=== PATIENT | male | born 1970 | race Caucasian/White ===

== ENCOUNTER 2017-04-06 19:51 | Emergency (ER) | payer BC, OTHER ==
--- NOTE | 2017-04-06 20:10 | EDM.PDOC ---
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 He jumped to the ground and his L foot slid in front of him and he fell. There was some initial pain in the ankle, but no observed swelling. He has continued employment, but is aware of some residual pain and appearance of swelling. He has not worn a splint or brace, nor has taken medication. He comes to the [facility] ED this evening for assessment. - Related Data Allergies Allergy/AdvReac Type Severity Reaction Status Date / Time No Known Allergies Allergy Verified 04/06/17 19:59 Home Meds: Home Meds NK [No Known Home Meds] 04/06/17 [History] Past Medical History - Past Surgical History HEENT Surgical History: Reports: Tonsillectomy Musculoskeletal Surgical History: Reports: Other (See Below) Other Musculoskeletal Surgeries/Procedures:: tendon and bilateral ankle surgery. Social & Family History - Family History Family Medical History: Noncontributory - Tobacco Use Smoking Status *Q: Current Every Day Smoker Years of Tobacco use: 15 Packs/Tins Daily: 1 - Caffeine Use Caffeine Use: Reports: Coffee, Soda - Recreational Drug Use Recreational Drug Use: No Review of Systems - Review of Systems Review Of Systems: ROS reveals no pertinent complaints other than HPI. ED EXAM, GENERAL - Physical Exam Exam: See Below Exam Limited By: No Limitations General Appearance: Alert, WD/WN, No Apparent Distress Head: Normocephalic Neck: Normal Inspection Respiratory/Chest: Lungs Clear Cardiovascular: Regular Rate, Rhythm Back Exam: Normal Inspection Extremities: Joint Swelling (L ankle: small effusion, no laxity to maneuver; neg drawer sign) Neurological: Alert, Oriented, CN II-XII Intact, No Motor/Sensory Deficits Psychiatric: Normal Affect, Normal Mood Skin Exam: Warm, Dry, Intact, Normal Color Lymphatic: No Adenopathy Course - Vital Signs Text/Narrative:: I reviewed x rays of L ankle: no deformity. Prieto was fitted with a AirCast Splint. Last Recorded V/S: Last Vital Signs Temp 36.7 C 04/06/17 20:00 Pulse 88 04/06/17 20:00 Resp 17 04/06/17 20:00 BP 160/77 H 04/06/17 20:00 Pulse Ox 100 04/06/17 20:00 - Orders/Labs/Meds Orders: Active Orders 24 hr Category Date Time Status Ankle Min 3V Lt [CR] Stat Exams 04/06/17 20:06 Ordered Departure - Departure Time of Disposition: 20:47 Disposition: Home, Self-Care 01 Condition: Fair Clinical Impression: Sprain of left ankle Qualifiers: Encounter type: initial encounter Involved ligament of ankle: unspecified ligament Qualified Code(s): S93.402A - Sprain of unspecified ligament of left ankle, initial encounter - Discharge Information Referrals: PCP,None [Primary Care Provider] - Forms: ED Department Discharge - Problem List & Annotations (1) Sprain of left ankle SNOMED Code(s): 47866089 Code(s): S93.402A - SPRAIN OF UNSPECIFIED LIGAMENT OF LEFT ANKLE, INIT ENCNTR Status: Acute Current Visit: Yes Annotation/Comment:: AirCast Splint, NSAIDs for comfort, and gentle ROM. Qualifiers: Encounter type: initial encounter Involved ligament of ankle: unspecified ligament Qualified Code(s): S93.402A - Sprain of unspecified ligament of left ankle, initial encounter - Problem List Review Problem List Initiated/Reviewed/Updated: Yes - My Orders Last 24 Hours: My Active Orders 04/06/17 20:06 Ankle Min 3V Lt [CR] Stat - Assessment/Plan Last 24 Hours: My Active Orders 04/06/17 20:06 Ankle Min 3V Lt [CR] Stat Plan: Follow up with PCP.
--- NOTE | 2017-04-07 11:11 | CR ---
INDICATION: Injury from fall at work on 04/04/2017. LEFT ANKLE: Three views of the left ankle were obtained 04/06/2017 and revealed a moderate sized plantar calcaneal spur. The ankle mortise appeared intact without a fracture, dislocation, or other significant bone or joint abnormality. VENKAT
== END 2017-04-06 20:54 | disposition home or self-care (01) ==
LOC: FB.ED 19:51
DX: S93.402A Sprain of unspecified ligament of left ankle, initial encounter (principal); F17.210 Nicotine dependence, cigarettes, uncomplicated; W17.89XA Other fall from one level to another, initial encounter; Y92.69 Other specified industrial and construction area as the place of occurrence of the external cause; Y99.0 Civilian activity done for income or pay
CPT/HCPCS: 29515; 73610-LT; 99283

== ENCOUNTER 2017-12-13 08:19 | Emergency (ER) | payer OTHER ==
[2017-12-13] MEDS ORDERED: Dexamethasone 4 MG/ML SDV IVPUSH ONE (09:24)
--- NOTE | 2017-12-13 09:34 | EDM.PDOC ---
ED HPI GENERAL MEDICAL PROBLEM - General Chief Complaint: Upper Extremity Injury/Pain Stated Complaint: RT SHOULDER NUMBNESS Time Seen by Provider: 12/13/17 09:20 Source of Information: Reports: Patient History Limitations: Reports: No Limitations - History of Present Illness INITIAL COMMENTS - FREE TEXT/NARRATIVE: Developed right shoulder pain yesterday radiating down right arm associated with numbness and weakness. Shoulder pain is worse with movement. Symptoms did not improve with Ibuprofen. Has h/o rheumatoid arthritis, had been on methotrexate and prednisone but d/c'd 1 year ago because didn't tolerate the side effects. Has also had right lower back pain radiating to right leg since yesterday and intermittent headaches x 1 week (currently no headache). Denies injury. Onset Date: 12/12/17 Duration: Day(s): (2) Severity: Moderate Worsens with: Reports: Movement Right Shoulder Pain Score (Numeric/FACES): 6 - Related Data Allergies Allergy/AdvReac Type Severity Reaction Status Date / Time No Known Allergies Allergy Verified 12/13/17 08:43 Home Meds: Home Meds Acetaminophen/HYDROcodone [[place] 325-5 MG] 1 - 2 tab PO Q6H PRN #20 tab [Rx] Albuterol [Ventolin HFA] 1 inh INH Q4H PRN 12/13/17 [History] Methocarbamol [Robaxin] 1,500 mg PO Q8H PRN #40 tab 12/13/17 [Rx] predniSONE [Prednisone] 60 mg PO DAILY #15 tablet 12/13/17 [Rx] Past Medical History Cardiovascular History: Denies: CAD, DC Respiratory History: Reports: Asthma Immunologic History: Reports: Other (See Below) (Rheumatoid arthritis) - Past Surgical History HEENT Surgical History: Reports: Tonsillectomy Musculoskeletal Surgical History: Reports: Other (See Below) Other Musculoskeletal Surgeries/Procedures:: tendon and bilateral ankle surgery. Social & Family History - Family History Family Medical History: Noncontributory - Tobacco Use Smoking Status *Q: Current Some Day Smoker Tobacco Use Within Last Twelve Months: Cigarettes - Caffeine Use Caffeine Use: Reports: Coffee, Soda - Alcohol Use Alcohol Use History: No - Recreational Drug Use Recreational Drug Use: No Review of Systems - Review of Systems Review Of Systems: ROS reveals no pertinent complaints other than HPI. ED EXAM, GENERAL - Physical Exam Exam: See Below Exam Limited By: No Limitations General Appearance: Alert, WD/WN, No Apparent Distress Eye Exam: Bilateral Eye: EOMI, PERRL Ears: Normal External Exam Nose: Normal Inspection Throat/Mouth: No Airway Compromise Head: Atraumatic, Normocephalic Neck: Normal Inspection, Supple, Non-Tender Respiratory/Chest: No Respiratory Distress, Lungs Clear, Normal Breath Sounds Cardiovascular: Regular Rate, Rhythm, No Murmur Peripheral Pulses: 2+: Radial (R) Extremities: Normal Capillary Refill, Limited Range of Motion (right shoulder due to pain), Other (right posterior shoulder tenderness) Neurological: Alert, CN II-XII Intact, Normal Cognition, Normal Gait, Other ( weak right grasp, decreased sensation light touch to right arm, decreased sensation right lateral thigh, DTRs=0 bilateral upper and lower extremities) Psychiatric: Normal Affect, Normal Mood Skin Exam: Warm, Dry, Intact EKG INTERPRETATION EKG Date: 12/13/17 Time: 09:34 Rhythm: NSR Rate (Beats/Min): 61 [place]: Normal P-Wave: Present QRS: Normal ST-T: Normal QT: Normal Course - Vital Signs Last Recorded V/S: Last Vital Signs Temp 36.8 C 12/13/17 08:19 Pulse 71 12/13/17 08:19 Resp 18 12/13/17 08:19 BP 133/82 12/13/17 08:19 Pulse Ox 98 12/13/17 08:19 - Orders/Labs/Meds Orders: Active Orders 24 hr Category Date Time Status C-Spine [Cervical Spine wo Cont] [CT] Stat Exams 12/13/17 09:47 Ordered Cervical Spine Comp wo Cont [MR] Stat Exams 12/13/17 09:23 Stop Req Head wo Cont [CT] Stat Exams 12/13/17 09:21 Ordered Lumbar Spine Comp wo Cont [MR] Stat Exams 12/13/17 09:21 Stop Req Lumbar Spine wo Cont [CT] Stat Exams 12/13/17 09:47 Taken Shoulder Comp Rt [CR] Stat Exams 12/13/17 09:21 Taken Sodium Chloride 0.9% [Saline Flush] Med 12/13/17 09:24 Active 10 ml FLUSH ASDIRECTED PRN Saline Lock Insert [OM.PC] Routine Oth 12/13/17 09:24 Ordered EKG 12 Lead [EK] Stat Ther 12/13/17 09:21 Ordered Medication Orders Sodium Chloride (Saline Flush) 10 ml FLUSH ASDIRECTED PRN PRN Reason: Keep Vein Open Last Admin: 12/13/17 09:59 Dose: 10 ml Admin: 12/13/17 09:57 Dose: 10 ml Labs: Laboratory Tests 12/13/17 12/13/17 12/13/17 Range/Units 09:40 09:40 09:40 WBC 9.1 (4.5-12.0) X10-3/uL RBC 4.77 (4.30-5.75) x10(6)uL Hgb 16.4 H (11.5-15.5) g/dL Hct 46.7 (30.0-51.3) % MCV 97.9 H (80-96) fL MCH 34.4 H (27.7-33.6) pg MCHC 35.1 (32.2-35.4) g/dL RDW 11.6 (11.5-15.5) % Plt Count 290 (125-369) X10(3)uL MPV 7.7 (7.4-10.4) fL Neut % (Auto) 65.8 (46-82) % Lymph % (Auto) 26.5 (13-37) % [place] % (Auto) 4.6 (4-12) % Eos % (Auto) 2 (1.0-5.0) % Baso % (Auto) 1 (0-2) % Neut # (Auto) 6.0 (1.6-8.3) # Lymph # (Auto) 2.4 (0.6-5.0) # [place] # (Auto) 0.4 (0.0-1.3) # Eos # (Auto) 0.2 (0.0-0.8) # Baso # (Auto) 0.1 (0.0-0.2) # Sodium 137 (135-145) mmol/L Potassium 4.0 (3.5-5.3) mmol/L Chloride 103 (100-110) mmol/L Carbon Dioxide 29 (21-32) mmol/L BUN 14 (7-18) mg/dL Creatinine 1.0 (0.70-1.30) mg/dL Est Cr Clr Drug Dosing 93.28 mL/min Estimated GFR (MDRD) > 60 (>60) BUN/Creatinine Ratio 14.0 (9-20) Glucose 109 (80-116) mg/dL Calcium 9.0 (8.6-10.2) mg/dL Total Bilirubin 0.5 (0.1-1.3) mg/dL AST 16 (5-25) IU/L ALT 34 (12-36) U/L Alkaline Phosphatase 57 (56-112) IU/L Troponin I < 0.017 L (<0.017-0.056) ng/mL Total Protein 7.7 (6.0-8.0) g/dL Albumin 3.8 (3.5-5.2) g/dL Globulin 3.9 g/dL Albumin/Globulin Ratio 1.0 Meds: Medications Generic Name Dose Route Start Last Admin Trade Name Freq PRN Reason Stop Dose Admin Sodium Chloride 10 ml 12/13/17 09:24 12/13/17 09:59 Saline Flush FLUSH 10 ml ASDIRECTED PRN Administration Keep Vein Open Discontinued Medications Generic Name Dose Route Start Last Admin Trade Name Freq PRN Reason Stop Dose Admin Dexamethasone 10 mg 12/13/17 09:24 12/13/17 09:52 Dexamethasone IVPUSH 12/13/17 09:25 10 mg ONETIME ONE Administration - Radiology Interpretation Free Text/Narrative:: CT Head: NAD (per Dr. Burgess). CT C-spine: NAD (per Dr. Burgess). CT L-spine: NAD (per Dr. Burgess). Right shoulder XR: NAD. - Re-Assessments/Exams Free Text/Narrative Re-Assessment/Exam: 12/13/17 10:49 Some improvement of RUE pain and strength after Decadron 10mg IV. Departure - Departure Time of Disposition: 10:49 Disposition: Home, Self-Care 01 Condition: Good Clinical Impression: Cervical radiculopathy, Sciatica, right side Right shoulder pain Qualifiers: Chronicity: acute Qualified Code(s): M25.511 - Pain in right shoulder - Discharge Information *PRESCRIPTION DRUG MONITORING PROGRAM REVIEWED*: Yes *COPY OF PRESCRIPTION DRUG MONITORING REPORT IN PATIENT FAWN: Not Applicable Prescriptions: Acetaminophen/HYDROcodone [[place] 325-5 MG] 1 - 2 tab PO Q6H PRN #20 tab PRN Reason: Pain Methocarbamol [Robaxin] 1,500 mg PO Q8H PRN #40 tab PRN Reason: Muscle Spasm predniSONE [Prednisone] 60 mg PO DAILY #15 tablet Instructions: Shoulder Pain, Cervical Radiculopathy, Sciatica, [id number] Referrals: PCP,None [Primary Care Provider] - Forms: ED Department Discharge Additional Instructions: Fill prescriptions for Prednisone, [place] and Robaxin. Rest. Establish with a primary physician in 3-4 days. Outpatient MRIs of cervical and lumbar spine. - My Orders Last 24 Hours: My Active Orders 12/13/17 09:21 Head wo Cont [CT] Stat Lumbar Spine Comp wo Cont [MR] Stat Shoulder Comp Rt [CR] Stat EKG 12 Lead [EK] Stat 12/13/17 09:23 Cervical Spine Comp wo Cont [MR] Stat 12/13/17 09:24 Sodium Chloride 0.9% [Saline Flush] 10 ml FLUSH ASDIRECTED PRN Saline Lock Insert [OM.PC] Routine 12/13/17 09:47 C-Spine [Cervical Spine wo Cont] [CT] Stat Lumbar Spine wo Cont [CT] Stat - Assessment/Plan Last 24 Hours: My Active Orders 12/13/17 09:21 Head wo Cont [CT] Stat Lumbar Spine Comp wo Cont [MR] Stat Shoulder Comp Rt [CR] Stat EKG 12 Lead [EK] Stat 12/13/17 09:23 Cervical Spine Comp wo Cont [MR] Stat 12/13/17 09:24 Sodium Chloride 0.9% [Saline Flush] 10 ml FLUSH ASDIRECTED PRN Saline Lock Insert [OM.PC] Routine 12/13/17 09:47 C-Spine [Cervical Spine wo Cont] [CT] Stat Lumbar Spine wo Cont [CT] Stat
[2017-12-13] MEDS: Sodium Chloride 0.9% 10 ML Syringe FLUSH PRN ×2 (09:57→09:59)
--- NOTE | 2017-12-13 11:31 | CR ---
INDICATION: Shoulder pain. RIGHT SHOULDER X-RAYS, FOUR VIEWS: FINDINGS: There is minimal degenerative change where the rotator cuff tendons insert on the greater tuberosity. There is minimal degenerative change at the AC joint. Otherwise, no significant abnormalities are shown. If the patient continues to have symptoms or if there is suspicion for internal derangement, I would do an MRI scan of shoulder for further evaluation. [facility]
--- NOTE | 2017-12-13 11:35 | CT ---
INDICATION: Headaches. Facial numbness and tingling. CT HEAD WITHOUT CONTRAST: TECHNIQUE: 2.5 mm slices without contrast. Soft tissue and bone window images. FINDINGS: There was an earlier study from 08/01/2017. No significant changes. No bleed or mass or mass effect. Ventricles and sulci look normal. No parenchymal density abnormality. There is mild sinusitis with mild mucosal thickening in the ethmoid sinuses. No calvarial lesions. IMPRESSION: Minimal paranasal sinus inflammatory disease in the ethmoid sinuses. Otherwise, no significant abnormalities. [facility]
--- NOTE | 2017-12-13 11:43 | CT ---
INDICATION: Back pain. Right leg pain. CT LUMBAR SPINE WITHOUT CONTRAST: TECHNIQUE: Axial images through the lumbar spine with sagittal and coronal reformatted images. FINDINGS: No relevant comparison imaging. The patient appears to be of larger body habitus. There appear to be 5 lumbar type vertebral bodies. On the reformative images, there is slight retrolisthesis of L5 on S1. Otherwise, the alignment is appropriate. No compression fracture. No worrisome lytic or blastic bone lesion. Axial images are reviewed. They show the following: T12-L1: No apparent neural foraminal or central canal compromise. L1-2: No apparent neural foraminal or central canal compromise. L2-3: No apparent neural foraminal or central canal compromise. L3-4: No apparent neural foraminal or central canal compromise. Mild degenerative change in the facet joints. L4-5: Minimal diffuse disk bulge. Mild degenerative change in the facet joints. No apparent neural foraminal or central canal compromise. L5-S1: Mild degenerative change in the facet joints. Mild diffuse disk bulge. No definite neural foraminal or central canal compromise or nerve root impingement. IMPRESSION: Mild generalized degenerative changes, as outlined above. By this study, no definite neural foraminal or central canal compromise or nerve root impingement. If the patient continues to have symptoms that are suggestive of radiculopathy, I would do an MRI of lumbar spine for further evaluation. [facility]
--- NOTE | 2017-12-13 11:57 | CT ---
INDICATION: Neck pain. Right arm pain. CT CERVICAL SPINE WITHOUT CONTRAST: TECHNIQUE: Axial images through the cervical spine. Sagittal and coronal reformatted images. FINDINGS: No comparison imaging. On the reformatted images, there is some straightening of the cervical spine, which may be related to some underlying spasm. Otherwise, I feel the cervical vertebral bodies are in reasonable alignment. There is some mild disk space narrowing with some degenerative end plate change and spurring that is identified, especially at the C4-5 and C5-6 levels. No bony fracture. No worrisome lytic or blastic bone lesion. Axial images are reviewed. They show the following: C2-3: Mild degenerative change in the facet joints, right greater than left. No apparent neural foraminal or central canal compromise. C3-4: Minimal degenerative change related to the uncovertebral joints and facet joints on the left side. No significant neural foraminal or central canal compromise. C4-5: Minimal broad-based posterior osteophytic ridging and disk bulge. No significant neural foraminal or central canal compromise. C5-6: Minimal posterior osteophytic ridging and disk bulge. No significant neural foraminal or central canal compromise. C6-7: No significant neural foraminal or central canal compromise. C7-T1: Mild degenerative change in the facet joints. No significant neural foraminal or central canal compromise. IMPRESSION: Mild degenerative changes are present. By this exam, no appreciable neural foraminal or central canal compromise. If there is still a persistent suspicion for underlying radiculopathy, recommend MRI of cervical spine for further evaluation. [facility]
== END 2017-12-13 11:23 | disposition home or self-care (01) ==
LOC: FB.ED 08:19
DX: M54.12 Radiculopathy, cervical region (principal); M54.41 Lumbago with sciatica, right side; F17.210 Nicotine dependence, cigarettes, uncomplicated; J45.909 Unspecified asthma, uncomplicated; I25.10 Atherosclerotic heart disease of native coronary artery without angina pectoris; I25.2 Old myocardial infarction; Z79.899 Other long term (current) drug therapy
CPT/HCPCS: 36415; 70450; 72125; 72131; 73030-RT; 80053; 84484; 85025; 93005; 96374; 99284; J1100; J7050

== ENCOUNTER 2018-10-12 21:23 | Emergency (ER) | payer BC ==
--- NOTE | 2018-10-12 22:09 | EDM.PDOC ---
ED HPI GENERAL MEDICAL PROBLEM - General Chief Complaint: Chest Pain Stated Complaint: POSSIBLE HEART ATTACK Time Seen by Provider: 10/12/18 21:50 Source of Information: Reports: Patient History Limitations: Reports: No Limitations - History of Present Illness INITIAL COMMENTS - FREE TEXT/NARRATIVE: 48-year-old male who reports at 3 AM today (10/12/2018) he was awakened by a sharp and stabbing pain in his lower central chest that radiated through to his back. It was a 9/10 at this point. It continued until approximately 6 AM and then it seemed to resolve. He still had some tenderness in his abdomen with palpation associated with this. He had no vomiting. He was quite diaphoretic with this. He found that sitting up seemed to make his symptoms somewhat better and lying down seems to make them worse. He reports that he felt fairly normal through the day and then at approximately 8 PM tonight he had recurrence of the pain that at a lesser level that before. He reports the pain as a 6-7/10 and is in the same place going through to his back. He also reports that he ate pizza tonight prior to this occurring. No difficulty breathing. He did have diaphoresis associated with this again. No cough. No fevers or chills. No other associated signs or symptoms. No other modifying factors. Onset: Today (3 AM and again at 8 PM) Duration: Intermittent Location: Reports: Chest, Abdomen, Back Quality: Reports: Sharp, Stabbing Severity: Moderate (to severe) Improves with: Reports: Other (Sitting up) Worsens with: Reports: Other (Palpation. 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) - Related Data Allergies Allergy/AdvReac Type Severity Reaction Status Date / Time No Known Allergies Allergy Verified 10/12/18 23:47 Home Meds: Home Meds Acetaminophen/HYDROcodone [[place] 325-5 MG] 1 - 2 tab PO Q6H PRN #20 tab [Rx] Albuterol [Ventolin HFA] 1 inh INH Q4H PRN 12/13/17 [History] Methocarbamol [Robaxin] 1,500 mg PO Q8H PRN #40 tab 12/13/17 [Rx] predniSONE [Prednisone] 60 mg PO DAILY #15 tablet 12/13/17 [Rx] Omeprazole 40 mg PO QAM #30 cap.sr 10/12/18 [Rx] Past Medical History Respiratory History: Reports: Asthma Musculoskeletal History: Reports: RA (But this is untreated present.) - Past Surgical History HEENT Surgical History: Reports: Tonsillectomy Musculoskeletal Surgical History: Reports: Other (See Below) (Bilateral ankle reconstruction with repair of tendons and some hardware placement) Other Musculoskeletal Surgeries/Procedures:: Tendon repair of right forearm. Social & Family History - Family History Cardiac: Reports: None - Tobacco Use Smoking Status *Q: Current Every Day Smoker - Caffeine Use Caffeine Use: Reports: Coffee, Soda - Alcohol Use Alcohol Use History: No - Living Situation & Occupation Living situation: Reports: (Here with his ) Occupation: Employed ED ROS GENERAL - Review of Systems Review Of Systems: See Below Constitutional: Reports: Diaphoresis HEENT: Reports: No Symptoms Respiratory: Reports: No Symptoms Cardiovascular: Reports: Chest Pain GI/Abdominal: Reports: Abdominal Pain : Reports: No Symptoms Musculoskeletal: Reports: Back Pain (Pain radiates from lower chest and upper abdominal area to his back) Skin: Reports: Diaphoresis (With these episodes) Neurological: Reports: No Symptoms Hematologic/Lymphatic: Reports: No Symptoms Immunologic: Reports: No Symptoms ED EXAM, GENERAL - Physical Exam Exam: See Below Exam Limited By: No Limitations General Appearance: Alert, Mild Distress, Obese Eye Exam: Bilateral Eye: EOMI, Normal Inspection, PERRL Ears: Normal External Exam Ear Exam: Bilateral Ear: Auricle Normal Nose: Normal Inspection, Normal Mucosa, No Blood Throat/Mouth: Normal Inspection, Normal Oropharynx, Normal Voice, No Airway Compromise Head: Atraumatic, Normocephalic Neck: Normal Inspection Respiratory/Chest: No Respiratory Distress, Lungs Clear, Normal Breath Sounds, No Accessory Muscle Use, Chest Non-Tender Cardiovascular: Normal Peripheral Pulses, Regular Rate, Rhythm, No JVD Peripheral Pulses: 2+: Radial (L), Radial (R), Dorsalis Pedis (L), Dorsalis Pedis (R) GI/Abdominal: Normal Bowel Sounds, Soft, Tender (And right upper Quadrant and epigastrium), Other (Protuberant). No: Rigid, Rebound Back Exam: Normal Inspection. No: CVA Tenderness (R), CVA Tenderness (L) Extremities: Normal Inspection, Normal Range of Motion, Non-Tender, No Pedal Edema, Normal Capillary Refill Neurological: Alert, Oriented, CN II-XII Intact, Normal Cognition, No Motor/ Sensory Deficits Skin Exam: Warm, Dry, Intact, Normal Color, No Rash EKG INTERPRETATION EKG Date: 10/12/18 Time: 21:26 Rhythm: NSR Rate (Beats/Min): 80 Anna: Normal P-Wave: Present QRS: Normal ST-T: Normal QT: Normal Comparison: No Change (From EKG performed on 12/13/2017. This is a normal EKG.) Course - Vital Signs Last Recorded V/S: Last Vital Signs Temp 36.8 C 10/12/18 23:12 Pulse 74 10/12/18 23:12 Resp 19 10/12/18 23:12 BP 121/69 10/12/18 23:12 Pulse Ox 98 10/12/18 23:12 - Orders/Labs/Meds Orders: Active Orders 24 hr Category Date Time Status EKG Documentation Completion [RC] ASDIRECTED Care 10/12/18 22:13 Active Chest 2V [CR] Stat Exams 10/12/18 22:11 Taken Sodium Chloride 0.9% [Saline Flush] Med 10/12/18 22:13 Active 10 ml FLUSH ASDIRECTED PRN Peripheral IV Insertion Adult [OM.PC] Routine Oth 10/12/18 22:13 Ordered EKG 12 Lead [EK] Routine Ther 10/12/18 22:11 Ordered Medication Orders Sodium Chloride (Saline Flush) 10 ml FLUSH ASDIRECTED PRN PRN Reason: Keep Vein Open Labs: Laboratory Tests 10/12/18 10/12/18 10/12/18 Range/Units 21:35 21:35 21:35 WBC 8.5 (4.5-12.0) X10-3/uL RBC 4.42 (4.30-5.75) x10(6)uL Hgb 15.1 (13.5-17.8) g/dL Hct 43.2 (30.0-51.3) % MCV 97.7 H (80-96) fL MCH 34.1 H (27.7-33.6) pg MCHC 34.9 (32.2-35.4) g/dL RDW 11.7 (11.5-15.5) % Plt Count 275 (125-369) X10(3)uL MPV 8.3 (7.4-10.4) fL Neut % (Auto) 59.0 (46-82) % Lymph % (Auto) 31.8 (13-37) % [place] % (Auto) 5.0 (4-12) % Eos % (Auto) 3 (1.0-5.0) % Baso % (Auto) 1 (0-2) % Neut # (Auto) 5.0 (1.6-8.3) # Lymph # (Auto) 2.7 (0.6-5.0) # [place] # (Auto) 0.4 (0.0-1.3) # Eos # (Auto) 0.3 (0.0-0.8) # Baso # (Auto) 0.1 (0.0-0.2) # Sodium 143 (135-145) mmol/L Potassium 3.2 L (3.5-5.3) mmol/L Chloride 108 D (100-110) mmol/L Carbon Dioxide 26 (21-32) mmol/L BUN 19 H (7-18) mg/dL Creatinine 1.0 (0.70-1.30) mg/dL Est Cr Clr Drug Dosing TNP Estimated GFR (MDRD) > 60 (>60) BUN/Creatinine Ratio 19.0 (9-20) Glucose 113 (80-116) mg/dL Calcium 8.6 (8.6-10.2) mg/dL Total Bilirubin 0.3 (0.1-1.3) mg/dL AST 13 D (5-25) IU/L ALT 28 D (12-36) U/L Alkaline Phosphatase 65 (56-112) IU/L Troponin I < 0.017 L (<0.017-0.056) ng/mL C-Reactive Protein < 0.2 L (0.5-0.9) mg/dL Total Protein 6.9 (6.0-8.0) g/dL Albumin 3.5 (3.5-5.2) g/dL Globulin 3.4 g/dL Albumin/Globulin Ratio 1.0 Amylase 39 (25-115) U/L Meds: Medications Generic Name Dose Route Start Last Admin Trade Name Freq PRN Reason Stop Dose Admin Sodium Chloride 10 ml 10/12/18 22:13 Saline Flush FLUSH ASDIRECTED PRN Keep Vein Open Discontinued Medications Generic Name Dose Route Start Last Admin Trade Name Brayan PRN Reason Stop Dose Admin Sodium Chloride 1,000 mls @ 999 mls/hr 10/12/18 22:13 10/12/18 22:35 Normal Saline IV 10/12/18 23:13 999 mls/hr .BOLUS ONE Administration Metoclopramide HCl 10 mg 10/12/18 22:13 10/12/18 22:34 Reglan IVPUSH 10/12/18 22:14 10 mg ONETIME ONE Administration Morphine Sulfate 4 mg 10/12/18 22:13 10/12/18 23:06 Morphine IVPUSH 10/12/18 22:14 Not Given ONETIME ONE Ondansetron HCl 4 mg 10/12/18 22:13 10/12/18 22:34 Zofran IVPUSH 10/12/18 22:14 4 mg ONETIME ONE Administration Pantoprazole Sodium 40 mg 10/13/18 23:28 Protonix PO 10/13/18 23:29 ONETIME ONE Pantoprazole Sodium 40 mg 10/13/18 23:32 Protonix PO 10/13/18 23:33 ONETIME ONE Pantoprazole Sodium 40 mg 10/12/18 23:36 10/12/18 23:39 Protonix PO 10/12/18 23:37 40 mg ONETIME ONE Administration - Radiology Interpretation Free Text/Narrative:: Chest x-ray PA and lateral shows no acute pathology. - Re-Assessments/Exams Free Text/Narrative Re-Assessment/Exam: 10/12/18 23:20: Patient feels much improved after Reglan and Zofran (he refused the morphine). He still has some pain. He rates pain as a 1/10. The pain is worse with palpation still but improved and he really wishes to go home. His blood tests were reassuringly normal. His troponin was negative. His chest x- ray was normal. His EKG was normal. With a normal EKG and the prolonged episodes of chest pain/abdominal pain, I feel the normal troponin has ruled out [place]. I suspect his symptoms are related to either gallbladder disease or gastroesophageal reflux disease. I am placing the patient on Prilosec 40 mg daily and I have referred him to [facility] where he can get further outpatient workup to delineate his problem. Departure - Departure Time of Disposition: 23:40 Disposition: Home, Self-Care 01 Condition: Good (Improved) Clinical Impression: Abdominal pain Qualifiers: Abdominal location: right upper quadrant Qualified Code(s): R10.11 - Right upper quadrant pain Chest pain Qualifiers: Chest pain type: unspecified Qualified Code(s): R07.9 - Chest pain, unspecified - Discharge Information Prescriptions: Omeprazole 40 mg PO QAM #30 cap.sr Instructions: Abdominal Pain, Adult, [id number], Nonspecific Chest Pain, Easy -to-Read Referrals: Leigha Mariscal NP [Nurse Practitioner] - Forms: ED Department Discharge Additional Instructions: Your EKG was reassuringly normal. Your blood tests were normal. Your chest x- ray was normal. This does not appear to be anything related to your heart. I suspect that your pain is due to either gallbladder disease or to acid reflux. I am placing you on Prilosec for treatment of possible acid reflux. You should avoid fatty foods and stick with a bland diet. You should drink plenty of fluids. Back to the emergency department for increase in pain, vomiting, trouble breathing or any other concerning sign or symptom. I have sent a referral to Leigha Mariscal NP. They should call you to arrange an appointment for follow-up with her. You will need further outpatient workup to include a gallbladder ultrasound and possibly other things. - My Orders Last 24 Hours: My Active Orders 10/12/18 22:11 Chest 2V [CR] Stat EKG 12 Lead [EK] Routine 10/12/18 22:13 EKG Documentation Completion [RC] ASDIRECTED Sodium Chloride 0.9% [Saline Flush] 10 ml FLUSH ASDIRECTED PRN Peripheral IV Insertion Adult [OM.PC] Routine - Assessment/Plan Last 24 Hours: My Active Orders 10/12/18 22:11 Chest 2V [CR] Stat EKG 12 Lead [EK] Routine 10/12/18 22:13 EKG Documentation Completion [RC] ASDIRECTED Sodium Chloride 0.9% [Saline Flush] 10 ml FLUSH ASDIRECTED PRN Peripheral IV Insertion Adult [OM.PC] Routine
[2018-10-12] MEDS ORDERED: Sodium Chloride 0.9% 1,000 ML IV ONE (22:13)
[2018-10-12] MEDS ORDERED: Metoclopramide 10 MG/2 ML SDV IVPUSH ONE (22:13)
[2018-10-12] MEDS ORDERED: Ondansetron 4 MG/2 ML SDV IVPUSH ONE (22:13)
[2018-10-12] MEDS ORDERED: Sodium Chloride 0.9% 10 ML Syringe FLUSH PRN (22:13)
[2018-10-12] MEDS: Morphine 4 MG/ML Syringe IVPUSH ONE ×2 (22:34→23:06)
[2018-10-12] MEDS ORDERED: Pantoprazole 40 MG Tab.CR PO ONE (23:36)
--- NOTE | 2018-10-13 11:20 | CR ---
INDICATION: Chest and abdominal pain. CHEST: PA and lateral views of the chest were obtained 10/12/18 - no comparisons. The heart and mediastinum were unremarkable. A mild dextroconvex scoliosis of the upper middle thoracic spine is noted. Diaphragm leaves are somewhat flattened with mild hyperaeration and prominent AP diameter, raising question of obstructive airway disease - possible COPD - correlate clinically. Overlying EKG leads are noted. A definite active infiltrate or effusion was not identified. IMPRESSION: 1. No acute process. 2. Possible COPD - correlate clinically. 3. Mild scoliosis. MTDD
[2018-10-13] MEDS ORDERED: Pantoprazole 40 MG Tab.CR PO ONE ×2 (23:28→23:32)
== END 2018-10-12 23:45 | disposition home or self-care (01) ==
LOC: FB.ED 21:23
DX: R07.9 Chest pain, unspecified (principal); R10.11 Right upper quadrant pain; J45.909 Unspecified asthma, uncomplicated; F17.200 Nicotine dependence, unspecified, uncomplicated; Z79.899 Other long term (current) drug therapy; Z98.890 Other specified postprocedural states
CPT/HCPCS: 36415; 71046; 80053; 82150; 84484; 85025; 86140; 93005; 96361; 96374; 96375; 99285; A9270; J2405; J2765; J7030; J2270

== ENCOUNTER 2019-07-03 08:47 | Emergency (ER) | payer BC, OTHER ==
[2019-07-03] MEDS ORDERED: Sodium Chloride 0.9% 10 ML Syringe FLUSH PRN (09:26)
[2019-07-03] MEDS ORDERED: Budesonide 0.5 MG/2 ML Neb Susp NEB ONE (09:41)
[2019-07-03] MEDS ORDERED: Albuterol/Ipratropium 3.0-0.5 MG/3 ML Neb Soln NEB ONE (09:41)
[2019-07-03] MEDS ORDERED: methylPREDNISolone Sodium Succinate 125 MG/2 ML SDV IVPUSH ONE (09:44)
[2019-07-03] MEDS ORDERED: Meclizine 25 MG Tab PO ONE (09:48)
--- NOTE | 2019-07-03 09:50 | EDM.PDOC ---
ED HPI GENERAL MEDICAL PROBLEM - General Chief Complaint: Respiratory Problem Stated Complaint: SOB,DIZZY,COUGH Time Seen by Provider: 07/03/19 09:15 Source of Information: Reports: Patient History Limitations: Reports: No Limitations - History of Present Illness INITIAL COMMENTS - FREE TEXT/NARRATIVE: sent in from clinic States he has had worsening asthma symptoms in the last 2-3 days has been getting more sob despite using albuterol Neb and and symbicort ( ran out of this about 3 weeks ago) had severe URI one month ago and since then has not felt completely better as cough has persisted till he developed sob this am was at work when he felt dizzy , lightheaded like he was going to fall balance seemed to be off states he did slip and fall down stairs on tuesday and hit his left side but pain in the lower back got worse pain with radiation and numbness and tingling in the toes on the right Onset: Gradual Onset Date: 06/30/19 Duration: Hour(s): (3) Location: Reports: Back (right side with pain radiaiting to the right leg) Quality: Reports: Ache, Dull Improves with: Reports: Cold Therapy, Heat Therapy Worsens with: Reports: Movement Context: Reports: Trauma (fell down stairs) Associated Symptoms: Reports: Cough, Shortness of Breath. Denies: Fever/Chills Lower Back Pain Score (Numeric/FACES): 7 - Related Data Allergies Allergy/AdvReac Type Severity Reaction Status Date / Time No Known Allergies Allergy Verified 07/03/19 09:27 Home Meds: Home Meds Albuterol [Ventolin HFA] 2 inh INH Q6H PRN 12/13/17 [History] Cyclobenzaprine [Flexeril] 10 mg PO BID PRN #30 tab 07/03/19 [Rx] Doxycycline [Vibramycin] 100 mg PO BID #14 cap 07/03/19 [Rx] Lidocaine 5% [Lidoderm 5%] 1 patch TOP DAILY #10 patch 07/03/19 [Rx] Nabumetone [Relafen] 750 mg PO BID #60 tab 07/03/19 [Rx] predniSONE 40 mg PO WITHBREAKFAST #5 tab 07/03/19 [Rx] Past Medical History Respiratory History: Reports: Asthma Gastrointestinal History: Reports: GERD Musculoskeletal History: Reports: RA (But this is untreated present.) Immunologic History: Reports: Other (See Below) (Rheumatoid arthritis) - Past Surgical History HEENT Surgical History: Reports: Tonsillectomy Musculoskeletal Surgical History: Reports: Other (See Below) (Bilateral ankle reconstruction with repair of tendons and some hardware placement) Other Musculoskeletal Surgeries/Procedures:: Tendon repair of right forearm. Social & Family History - Family History Family Medical History: Noncontributory Cardiac: Reports: None - Caffeine Use Caffeine Use: Reports: Coffee, Soda - Living Situation & Occupation Living situation: Reports: (Here with his ) Occupation: Employed ED ROS GENERAL - Review of Systems Review Of Systems: Comprehensive ROS is negative, except as noted in HPI. Constitutional: Reports: Malaise. Denies: Fever, Chills HEENT: Reports: No Symptoms Respiratory: Reports: Shortness of Breath, Cough Cardiovascular: Reports: No Symptoms Endocrine: Reports: No Symptoms GI/Abdominal: Reports: No Symptoms Musculoskeletal: Reports: Back Pain, Other (numbness and tingling down the legs) Neurological: Reports: Dizziness, Paresthesia (right sided), Difficulty Walking , Gait Disturbance Psychiatric: Reports: No Symptoms Hematologic/Lymphatic: Reports: No Symptoms ED EXAM, GENERAL - Physical Exam Exam: See Below Exam Limited By: No Limitations General Appearance: Alert, WD/WN, No Apparent Distress Eye Exam: Bilateral Eye: EOMI Ears: Normal External Exam Nose: Normal Inspection Throat/Mouth: Normal Inspection Head: Atraumatic, Normocephalic Neck: Supple, Non-Tender Respiratory/Chest: Decreased Breath Sounds, Wheezing (scattered, improved wtih duoneb) Cardiovascular: Regular Rate, Rhythm GI/Abdominal: Soft, Non-Tender Back Exam: Decreased Range of Motion, Muscle Spasm, Paraspinal Tenderness. No: Vertebral Tenderness Extremities: Limited Range of Motion (on the right due to positive SLR) Neurological: Alert, Oriented, CN II-XII Intact Psychiatric: Normal Affect Course - Vital Signs Last Recorded V/S: Last Vital Signs Temp 36.7 C 07/03/19 08:50 Pulse 77 07/03/19 08:50 Resp 14 07/03/19 08:50 BP 161/91 H 07/03/19 08:50 Pulse Ox 98 07/03/19 08:50 - Orders/Labs/Meds Orders: Active Orders 24 hr Category Date Time Status EKG Documentation Completion [RC] ASDIRECTED Care 07/03/19 09:27 Active RT Aerosol Therapy [RC] ASDIRECTED Care 07/03/19 09:41 Active Lumbar Spine 2 or 3V [CR] Stat Exams 07/03/19 10:51 Ordered Sodium Chloride 0.9% [Saline Flush] Med 07/03/19 09:26 Active 10 ml FLUSH ASDIRECTED PRN Peripheral IV Insertion Adult [OM.PC] Routine Oth 07/03/19 09:26 Ordered EKG 12 Lead [EK] Routine Ther 07/03/19 09:26 Ordered Medication Orders Sodium Chloride (Saline Flush) 10 ml FLUSH ASDIRECTED PRN PRN Reason: Keep Vein Open Last Admin: 07/03/19 10:18 Dose: 10 ml Labs: Laboratory Tests 07/03/19 07/03/19 07/03/19 Range/Units 09:40 09:40 09:40 WBC 7.9 (4.5-12.0) X10-3/uL RBC 4.49 (4.30-5.75) x10(6)uL Hgb 15.3 (13.5-17.8) g/dL Hct 43.6 (30.0-51.3) % MCV 97.0 H (80-96) fL MCH 34.1 H (27.7-33.6) pg MCHC 35.1 (32.2-35.4) g/dL RDW 11.5 (11.5-15.5) % Plt Count 258 (125-369) X10(3)uL MPV 7.4 (7.4-10.4) fL Neut % (Auto) 57.0 (46-82) % Lymph % (Auto) 32.4 (13-37) % [place] % (Auto) 5.3 (4-12) % Eos % (Auto) 3 (1.0-5.0) % Baso % (Auto) 3 H (0-2) % Neut # (Auto) 4.5 (1.6-8.3) # Lymph # (Auto) 2.6 (0.6-5.0) # [place] # (Auto) 0.4 (0.0-1.3) # Eos # (Auto) 0.2 (0.0-0.8) # Baso # (Auto) 0.2 (0.0-0.2) # D-Dimer, Quantitative (0.0-0.59) mg/LFEU Sodium 140 (135-145) mmol/L Potassium 4.2 D (3.5-5.3) mmol/L Chloride 105 (100-110) mmol/L Carbon Dioxide 25 (21-32) mmol/L BUN 12 (7-18) mg/dL Creatinine 1.0 (0.70-1.30) mg/dL Est Cr Clr Drug Dosing 95.31 mL/min Estimated GFR (MDRD) > 60 (>60) BUN/Creatinine Ratio 12.0 (9-20) Glucose 118 H (80-116) mg/dL Calcium 8.4 L (8.6-10.2) mg/dL Troponin I 7.0 (4.0-60.3) pg/mL 07/03/19 Range/Units 09:40 WBC (4.5-12.0) X10-3/uL RBC (4.30-5.75) x10(6)uL Hgb (13.5-17.8) g/dL Hct (30.0-51.3) % MCV (80-96) fL MCH (27.7-33.6) pg MCHC (32.2-35.4) g/dL RDW (11.5-15.5) % Plt Count (125-369) X10(3)uL MPV (7.4-10.4) fL Neut % (Auto) (46-82) % Lymph % (Auto) (13-37) % [place] % (Auto) (4-12) % Eos % (Auto) (1.0-5.0) % Baso % (Auto) (0-2) % Neut # (Auto) (1.6-8.3) # Lymph # (Auto) (0.6-5.0) # [place] # (Auto) (0.0-1.3) # Eos # (Auto) (0.0-0.8) # Baso # (Auto) (0.0-0.2) # D-Dimer, Quantitative 0.20 (0.0-0.59) mg/LFEU Sodium (135-145) mmol/L Potassium (3.5-5.3) mmol/L Chloride (100-110) mmol/L Carbon Dioxide (21-32) mmol/L BUN (7-18) mg/dL Creatinine (0.70-1.30) mg/dL Est Cr Clr Drug Dosing mL/min Estimated GFR (MDRD) (>60) BUN/Creatinine Ratio (9-20) Glucose (80-116) mg/dL Calcium (8.6-10.2) mg/dL Troponin I (4.0-60.3) pg/mL Meds: Medications Generic Name Dose Route Start Last Admin Trade Name Freq PRN Reason Stop Dose Admin Sodium Chloride 10 ml 07/03/19 09:26 07/03/19 10:18 Saline Flush FLUSH 10 ml ASDIRECTED PRN Administration Keep Vein Open Discontinued Medications Generic Name Dose Route Start Last Admin Trade Name Freq PRN Reason Stop Dose Admin Albuterol/Ipratropium 3 ml 07/03/19 09:41 07/03/19 09:55 Duoneb 3.0-0.5 Mg/3 Ml NEB 07/03/19 09:42 3 ml ONETIME ONE Administration Budesonide 0.5 mg 07/03/19 09:41 07/03/19 09:55 Pulmicort NEB 07/03/19 09:42 0.5 mg ONETIME ONE Administration Meclizine HCl 25 mg 07/03/19 09:48 07/03/19 10:18 Antivert PO 07/03/19 09:49 25 mg ONETIME ONE Administration Methylprednisolone Sodium Succinate 125 mg 07/03/19 09:44 07/03/19 10:09 Solu-Medrol IVPUSH 07/03/19 09:45 125 mg ONETIME ONE Administration - Re-Assessments/Exams Free Text/Narrative Re-Assessment/Exam: 07/03/19 11:25 pt given duoneb and solumedrol and pulmicort and breathing improved given toradol for low back pain labs are negative : negative D-dimer Departure - Departure Time of Disposition: 11:30 Disposition: DC/Tfer to Hospice - Home 50 Clinical Impression: Acute bronchitis with asthma with acute exacerbation, Right-sided low back pain with right-sided sciatica, Lumbar paraspinal muscle spasm, Bronchitis - Discharge Information *PRESCRIPTION DRUG MONITORING PROGRAM REVIEWED*: Not Applicable *COPY OF PRESCRIPTION DRUG MONITORING REPORT IN PATIENT FAWN: Not Applicable Prescriptions: Lidocaine 5% [Lidoderm 5%] 1 patch TOP DAILY #10 patch Nabumetone [Relafen] 750 mg PO BID #60 tab predniSONE 40 mg PO WITHBREAKFAST #5 tab Instructions: Back Injury Prevention, [id number], Sciatica, Pzil-or-Krek Referrals: Prieto Ortiz MD [Primary Care Provider] - Forms: ED Department Discharge Additional Instructions: 1) continue with inhalers as prescribed if symptoms get worse seen you doctor of adjustment of medications 2) Warm compress to lower back 3 times daily 3) OK to see chiropractor or physical therapist for back pain Sepsis Event Note - Evaluation Sepsis Screening Result: No Definite Risk - Focused Exam Vital Signs: Vital Signs Temp Pulse Resp BP Pulse Ox 07/03/19 08:50 36.7 C 77 14 161/91 H 98 Date Exam was Performed: 07/03/19 Time Exam was Performed: 11:22 - My Orders Last 24 Hours: My Active Orders 07/03/19 09:26 Sodium Chloride 0.9% [Saline Flush] 10 ml FLUSH ASDIRECTED PRN Peripheral IV Insertion Adult [OM.PC] Routine EKG 12 Lead [EK] Routine 07/03/19 09:27 EKG Documentation Completion [RC] ASDIRECTED 07/03/19 09:41 RT Aerosol Therapy [RC] ASDIRECTED 07/03/19 10:51 Lumbar Spine 2 or 3V [CR] Stat - Assessment/Plan Last 24 Hours: My Active Orders 07/03/19 09:26 Sodium Chloride 0.9% [Saline Flush] 10 ml FLUSH ASDIRECTED PRN Peripheral IV Insertion Adult [OM.PC] Routine EKG 12 Lead [EK] Routine 07/03/19 09:27 EKG Documentation Completion [RC] ASDIRECTED 07/03/19 09:41 RT Aerosol Therapy [RC] ASDIRECTED 07/03/19 10:51 Lumbar Spine 2 or 3V [CR] Stat
--- NOTE | 2019-07-03 09:52 | CR ---
INDICATION: Shortness of breath. CHEST, ONE VIEW: AP upright view of the chest was obtained 07/03/19 and compared with 10/12/18. The lungs appear to be slightly hyperaerated. This could be on the basis of obstructive airway disease and should be correlated clinically. A definite active infiltrate or effusion was not identified. The heart and mediastinum and bony thorax were unremarkable except for a very minimal dextroconvex scoliosis of the thoracic spine present previously. Overlying EKG leads and a snap are noted. IMPRESSION: 1. No acute process. 2. Question possibility of COPD - correlate clinically. 3. Mild scoliosis. MTDD
--- NOTE | 2019-07-03 11:48 | CR ---
INDICATION: Lumbar back pain with radiation to the right leg after fall on Tuesday on the ice. LUMBAR SPINE: Three views of the lumbosacral spine were obtained 07/03/[address] lumbosacral spine of 12/13/2017. Bone density appeared to be normal. The pedicles appear to be intact. Sacroiliac joints appear to be intact with some mild degenerative changes, slightly more prominent on the right than left. Vertebral body and disc heights are again well maintained with relatively minimal hypertrophic changes anteriorly off vertebral body L4 and to an even lesser extent L3. No acute fracture or dislocation was suggested. IMPRESSION: No acute fracture or dislocation - essentially normal for age lumbosacral spine with minimal straightening. If symptoms persist - if occult fracture site is suspected clinically, nuclear bone imaging, CT or MRI may be helpful for further evaluation, as felt to be clinically necessary. VALENTINOD
== END 2019-07-03 11:55 | disposition home or self-care (01) ==
LOC: FB.ED 08:47
DX: J20.9 Acute bronchitis, unspecified (principal); J45.901 Unspecified asthma with (acute) exacerbation; M54.41 Lumbago with sciatica, right side
CPT/HCPCS: 36415; 71045; 72100; 80048; 84484; 85025; 85379; 93005; 94640; 96374; 99285-25; A9270-GY; J2930; J7620-GY

== ENCOUNTER 2019-11-08 06:57 | Emergency (ER) | payer BC, OTHER ==
--- NOTE | 2019-11-08 07:44 | EDM.PDOC ---
ED HPI GENERAL MEDICAL PROBLEM - General Chief Complaint: Wound Recheck Stated Complaint: RIGHT PINKY OPENED BACK UP Time Seen by Provider: 11/08/19 07:28 Source of Information: Reports: Patient, Old Records History Limitations: Reports: No Limitations - History of Present Illness INITIAL COMMENTS - FREE TEXT/NARRATIVE: Prieto comes into [facility] ED for inspection of R 5th digit wound that was injured 10 days ago. This fingertip injury required suturing, and SR earlier this week. He is concerned that the wound is discolored and not healed. When the dressing was removed, there was some appearance of discharge along the exposed margins. There was no odor, warmth or marvin tenderness. He is taking Keflex po. - Related Data Allergies Allergy/AdvReac Type Severity Reaction Status Date / Time No Known Allergies Allergy Verified 11/08/19 07:10 Home Meds: Home Meds Albuterol [Ventolin HFA] 2 inh INH Q6H PRN 12/13/17 [History] cephALEXin [Cephalexin] 500 mg TID 11/08/19 [History] Past Medical History Respiratory History: Reports: Asthma Gastrointestinal History: Reports: GERD Musculoskeletal History: Reports: RA Neurological History: Reports: Concussion Psychiatric History: Reports: Depression Endocrine/Metabolic History: Reports: Obesity/BMI 30+ Immunologic History: Reports: Other (See Below) (Rheumatoid arthritis) - Past Surgical History HEENT Surgical History: Reports: Adenoidectomy, Tonsillectomy GI Surgical History: Reports: None Musculoskeletal Surgical History: Reports: Other (See Below) Other Musculoskeletal Surgeries/Procedures:: Tendon repair of L forearm, bilat ankle surgery Social & Family History - Family History Family Medical History: Noncontributory Cardiac: Reports: None - Tobacco Use Smoking Status *Q: Current Every Day Smoker Years of Tobacco use: 20 Packs/Tins Daily: 0.3 - Caffeine Use Caffeine Use: Reports: Coffee, Soda - Recreational Drug Use Recreational Drug Use: No - Living Situation & Occupation Living situation: Reports: (Here with his ) Occupation: Employed ED ROS GENERAL - Review of Systems Review Of Systems: Comprehensive ROS is negative, except as noted in HPI. ED EXAM, SKIN/RASH Exam: See Below Exam Limited By: No Limitations General Appearance: Alert, WD/WN, No Apparent Distress Head: Normocephalic Neck: Normal Inspection, Supple, Non-Tender Respiratory/Chest: Lungs Clear Cardiovascular: Regular Rate, Rhythm Back Exam: Normal Inspection Extremities: Normal Range of Motion, Non-Tender, Other (inspection of R 5th digit: distal wound dehisence observed along margins, with granulation tissue an d some fibrinous exudate. There is no warmth, erythema, tenderness, or sloughing observed. ROM is unimpaired. Remainder of exam is unremarkable.) Neurological: Alert, Oriented, CN II-XII Intact, Normal Gait, No Motor/Sensory Deficits Psychiatric: Normal Affect, Normal Mood Skin: Dry Course - Vital Signs Text/Narrative:: Following an explanation of wound appearance, the nurse cleansed the wound with Hibiclens and redressed. He will continue daily wound care and finish out antibx. Last Recorded V/S: Last Vital Signs Temp 36.9 C 11/08/19 07:05 Pulse 72 11/08/19 07:05 Resp 18 11/08/19 07:05 BP 134/84 11/08/19 07:05 Pulse Ox 99 11/08/19 07:05 Departure - Departure Time of Disposition: 07:47 Disposition: Home, Self-Care 01 Condition: Fair Clinical Impression: Dehiscence of laceration wound of finger Qualifiers: Encounter type: subsequent encounter Qualified Code(s): T81.30XD - Disruption of wound, unspecified, subsequent encounter - Discharge Information *PRESCRIPTION DRUG MONITORING PROGRAM REVIEWED*: Not Applicable *COPY OF PRESCRIPTION DRUG MONITORING REPORT IN PATIENT FAWN: Not Applicable Referrals: PCP,None [Primary Care Provider] - Sepsis Event Note (ED) - Evaluation Sepsis Screening Result: No Definite Risk - Focused Exam Vital Signs: Vital Signs Temp Pulse Resp BP Pulse Ox 11/08/19 07:05 36.9 C 72 18 134/84 99 - Problem List & Annotations (1) Dehiscence of laceration wound of finger SNOMED Code(s): 993239220, 831665852 Code(s): T81.30XA - DISRUPTION OF WOUND, UNSPECIFIED, INITIAL ENCOUNTER Status: Acute Annotation/Comment:: I suggested continued wound cares, finish out antibx, and follow up with PCP. Qualifiers: Encounter type: subsequent encounter Qualified Code(s): T81.30XD - Disruption of wound, unspecified, subsequent encounter - Problem List Review Problem List Initiated/Reviewed/Updated: Yes - Assessment/Plan Plan: Follow up with PCP.
== END 2019-11-08 07:54 | disposition home or self-care (01) ==
LOC: FB.ED 06:57
DX: T81.33XA Disruption of traumatic injury wound repair, initial encounter (principal); F17.210 Nicotine dependence, cigarettes, uncomplicated; J45.909 Unspecified asthma, uncomplicated; E66.9 Obesity, unspecified; Z68.31 Body mass index [BMI] 31.0-31.9, adult
CPT/HCPCS: 99283

== ENCOUNTER 2020-07-08 14:01 | Day surgery (SDC) | payer BC ==
[2020-07-08] MEDS ORDERED: Neostigmine Methylsulfate 10 MG/10 ML MDV IVPUSH ONE (14:02)
[2020-07-08] MEDS ORDERED: Ketorolac 30 MG/ML SDV IVPUSH ONE (14:02)
[2020-07-08] MEDS ORDERED: Midazolam 1 MG/ML 2 ML SDV IV ONE (14:02)
[2020-07-08] MEDS ORDERED: fentaNYL 100 MCG/2 ML SDV IV ONE (14:02)
[2020-07-08] MEDS ORDERED: Lactated Ringers 1,000 ML IV ONE (14:02)
[2020-07-08] MEDS ORDERED: Succinylcholine 200 MG/10 ML MDV IV ONE (14:02)
[2020-07-08] MEDS ORDERED: Rocuronium 100 MG/10 ML MDV IV ONE (14:02)
[2020-07-08] MEDS ORDERED: Propofol 200 MG/20 ML SDV IV ONE (14:02)
[2020-07-08] MEDS ORDERED: Ondansetron 4 MG/2 ML SDV IVPUSH ONE (14:02)
[2020-07-08] MEDS ORDERED: Glycopyrrolate 0.2 MG/ML 5 ML MDV IV ONE (14:02)
[2020-07-08] MEDS ORDERED: cefOXitin 2 GM in Sodium Chloride 0.9% 100 ML IV ONE (14:22)
[2020-07-08] MEDS ORDERED: Sodium Chloride 0.9% 10 ML Syringe FLUSH PRN ×2 (14:22)
[2020-07-08] MEDS ORDERED: Lactated Ringers 1,000 ML IV SCH ×2 (14:30)
[2020-07-08] MEDS ORDERED: cefOXitin 2 GM Vial IVPUSH ONE ×2 (14:30→14:45)
[2020-07-08] MEDS ORDERED: Albuterol/Ipratropium 3.0-0.5 MG/3 ML Neb Soln NEB ONE (15:12)
[2020-07-08] MEDS ORDERED: Lidocaine 1% with EPINEPHrine 1:100,000 20 ML MDV INJECT ONE (16:52)
[2020-07-08] MEDS ORDERED: Bupivacaine 0.5% 30 ML SDV INJECT ONE (16:52)
[2020-07-08] MEDS ORDERED: Morphine 2 MG/ML SYRINGE IVPUSH PRN (18:13)
--- NOTE | 2020-07-08 18:23 | PCM.OPNOTE ---
- General Post-Op/Procedure Note Date of Surgery/Procedure: 07/08/20 Operative Procedure(s): lap appendectomy Findings: mildly indurated appendix Pre Op Diagnosis: acute appendicitis Post-Op Diagnosis: Same Anesthesia Technique: General ET Tube, Local (5 ml 1 % lido with epi 0.5% buvipicaine) Primary Surgeon: Fan Hood Anesthesia Provider: Yuriy Feuntes Pathology: appendix Fluid Replacement, Intraop: 1,200 EBL in mLs: 5 Complications: endo stefania misfired at the end of the catridge staple lines were intact Condition: Good Free Text/Narrative:: see dictation [id number]
[2020-07-08] MEDS ORDERED: Nicotine 21 MG/24 Hr Patch TRDERM SCH (20:00)
[2020-07-08] MEDS: Acetaminophen/HYDROcodone 325-5 MG Tab PO PRN (21:39)
[2020-07-09] MEDS: Albuterol/Ipratropium 3.0-0.5 MG/3 ML Neb Soln NEB PRN ×2 (01:07→08:40)
[2020-07-09] MEDS: Acetaminophen/HYDROcodone 325-5 MG Tab PO PRN ×2 (04:24→08:36)
--- NOTE | 2020-07-09 07:28 | OR ---
DATE OF OPERATION: 07/08/2020 SURGEON: Fan Hood MD PROCEDURE PERFORMED: Laparoscopic appendectomy. PREOPERATIVE DIAGNOSIS: Acute appendicitis. POSTOPERATIVE DIAGNOSIS: Acute appendicitis. INDICATIONS FOR PROCEDURE: This is a 49-year-old white male who presented to the clinic today with an onset of right lower quadrant abdominal pain. He was noted to have rebound and guarding and slightly elevated white count with some mild anorexia, all consistent with acute appendicitis. He was offered and accepted a laparoscopic appendectomy. DESCRIPTION OF OPERATION: After an excellent general endotracheal anesthetic was administered, the patient was prepped and draped in usual sterile manner. Local anesthetic which was a 1:1 mixture of 1% lidocaine with epinephrine and 0.5% bupivacaine was used to infiltrate the area below the umbilicus. A small vertical midline incision was carried out with a #15 scalpel blade. The underlying fascia was exposed bluntly. Two stay sutures of 0 Vicryl were placed on either side of the midline fascia which was then elevated. The fascia was incised and the abdominal cavity was entered. A 10.5 mm Emanuel trocar was then inserted into the patient's abdomen and was insufflated to 15 mmHg using carbon dioxide. Under direct visualization, a 5 mm port was placed in the right lower quadrant and one in the midline below the periumbilical port. The cecum was grasped. A mildly indurated and injected appendix was identified. This was elevated and this was done after putting the patient in Trendelenburg position with an airplane to the left. A rent was made in the mesoappendix. The Endo- NAV was passed and was fired across the base of the appendix. The cutter went down 3/4 of the load, but would not complete the pass. We were able to open up the cartridge and remove the cutter, and a new Endo-NAV was then passed with an additional load and this completed the transection, but again the cutter did not advance all the way down the cartridge. The staple line at this point however, looked adequate. The mesoappendix had a rent placed midway along the length of the appendix. Using a vascular load with a new Endo-NAV, this was passed through the distal portion of the mesoappendix and fired. Again, for the 3rd time, the cutter would not advance completely through, but only 3/[address] A LigaSure was then used to transect the remainder of the mesoappendix. Specimen was delivered into the specimen bag and brought out through the periumbilical port. The staple line was inspected. Due to the issues with the cartridge, we elected to imbricate the staple line on the cecum using interrupted 3-0 Vicryl. Care was taken not to incorporate the terminal ileum, which was well away from this area. After completely imbricating the staple line, the area was irrigated. The mesoappendix staple line was inspected, but no active bleeding was noted, and certainly no bleeding was noted over the LigaSure. After irrigating until clear, the pneumoperitoneum was released after removing the two 5 mm ports under direct visualization. The periumbilical fascial defect was closed with 0 Vicryl and the skin was approximated using interrupted subcu 4-0 Vicryl in the two 5 mm ports and a running subcu 4-0 Vicryl in the periumbilical port. Steri-Strips were applied. Needle, sponge, and instrument counts were reported as correct. Total of 5 mL of our local was used. The patient tolerated the procedure well, was taken to recovery in good condition. /[id number] [address]
--- NOTE | 2020-07-09 08:12 | PCM.SURGPN ---
- General Info Date of Service: 07/09/20 POD#: 1 Functional Status: Reports: Pain Controlled, Tolerating Diet, Ambulating, Urinating - Review of Systems General: Reports: No Symptoms Pulmonary: Reports: Wheezing (responded well to neb treatment is on a inhaler at home ) Cardiovascular: Reports: No Symptoms Gastrointestinal: Reports: Abdominal Pain (at incision sites ) - Patient Data Vitals - Most Recent: Last Vital Signs Temp 99 F 07/09/20 05:00 Pulse 83 07/09/20 04:20 Resp 16 07/09/20 04:20 BP 95/63 07/09/20 04:20 Pulse Ox 95 07/09/20 04:20 Weight - Most Recent: 101.264 kg I&O - Last 24 Hours: Intake & Output 07/08/20 07/09/20 07/09/20 22:59 06:59 14:59 Intake Total 1200 Output Total 300 400 Balance 900 -400 Lab Results Last 24 Hrs: Laboratory Results - last 24 hr 07/08/20 07/09/20 Range/Units 14:32 07:10 WBC 13.5 H (3.2-10.1) x10-3/uL RBC 3.79 L (3.90-5.90) x10(6)uL Hgb 13.2 (12.9-17.7) g/dL Hct 37.7 L (38.3-50.1) % MCV 99.6 H (80.8-98.7) fL MCH 34.7 H (27.0-33.3) pg MCHC 34.9 (28.7-35.3) g/dL RDW 12.2 L (12.4-15.0) % Plt Count 233 (117-477) x10(3)uL MPV 7.6 (6.7-11.0) fL Neut % (Auto) 77.1 H (40.3-71.8) % Lymph % (Auto) 14.8 L (15.8-45.3) % Bond % (Auto) 6.9 (5.5-15.2) % Eos % (Auto) 0.3 (0.1-6.8) % Baso % (Auto) 0.9 (0.3-3.8) % Neut # (Auto) 10.4 H (1.7-6.9) x10-3/uL Lymph # (Auto) 2.0 (0.5-4.5) x10-3/uL Bond # (Auto) 0.9 (0.0-1.2) x10-3/uL Eos # (Auto) 0.0 (0.0-0.6) x10-3/uL Baso # (Auto) 0.1 (0.0-0.3) x10-3/uL SARS-CoV-2 RNA (GILDA) Negative (NEGATIVE) Med Orders - Current: Current Medications Hydrocodone Bitart/Acetaminophen (Acetaminophen/Hydrocodone 325-5 Mg Tab) 1 tab PO Q4H PRN PRN Reason: Pain (mild 1-3) Last Admin: 07/09/20 04:24 Dose: 1 tab Documented by: Albuterol/Ipratropium (Albuterol/Ipratropium 3.0-0.5 Mg/3 Ml Neb Soln) 3 ml NEB Q4H PRN PRN Reason: Wheezing Last Admin: 07/09/20 01:07 Dose: 3 ml Documented by: Lactated Ringer's (Ringers, Lactated) 1,000 mls @ 125 mls/hr IV ASDIRECTED BARBARA Last Admin: 07/09/20 00:45 Dose: 125 mls/hr Documented by: Morphine Sulfate (Morphine 2 Mg/Ml Syringe) 2 mg IVPUSH Q1H PRN PRN Reason: Pain (severe 7-10) Last Admin: 07/09/20 00:45 Dose: 2 mg Documented by: Nicotine (Nicotine 21 Mg/24 Hr Patch) 21 mg TRDERM DAILY@2000 BARBARA Sodium Chloride (Sodium Chloride 0.9% 10 Ml Syringe) 10 ml FLUSH ASDIRECTED PRN PRN Reason: Keep Vein Open Last Admin: 07/09/20 00:45 Dose: 10 ml Documented by: Discontinued Medications Albuterol/Ipratropium (Albuterol/Ipratropium 3.0-0.5 Mg/3 Ml Neb Soln) 3 ml NEB ONETIME ONE Stop: 07/08/20 15:13 Last Admin: 07/08/20 15:24 Dose: 3 ml Documented by: Bupivacaine HCl (Bupivacaine 0.5% 30 Ml Sdv) 10 ml INJECT .STK-MED ONE Stop: 07/08/20 16:53 Last Admin: 07/08/20 16:52 Dose: 10 ml Documented by: Cefoxitin Sodium (Cefoxitin 2 Gm Vial) 2 gm IVPUSH ONETIME ONE Stop: 07/08/20 14:46 Last Admin: 07/08/20 14:51 Dose: 2 gm Documented by: Lactated Ringer's (Ringers, Lactated) 1,000 mls @ 125 mls/hr IV ASDIRECTED [facility] Lidocaine/Epinephrine (Lidocaine 1% With Epinephrine 1:100,000 20 Ml Mdv) 10 ml INJECT .STK-MED ONE Stop: 07/08/20 16:53 Last Admin: 07/08/20 16:52 Dose: 10 ml Documented by: Nicotine (Nicotine 21 Mg/24 Hr Patch) 21 mg TRDERM DAILY [facility] Last Admin: 07/08/20 20:01 Dose: 21 mg Documented by: Sodium Chloride (Sodium Chloride 0.9% 10 Ml Syringe) 10 ml FLUSH ASDIRECTED PRN PRN Reason: Keep Vein Open - Exam Wound/Incisions: Dressing Dry and Intact General: Alert, Oriented, Cooperative, No Acute Distress Lungs: Clear to Auscultation, Normal Respiratory Effort Cardiovascular: Regular Rate, Regular Rhythm GI/Abdominal Exam: Normal Bowel Sounds, Soft, Tender (at incisions ) Skin: Warm, Dry Sepsis Event Note - Evaluation Sepsis Screening Result: No Definite Risk - Focused Exam Vital Signs: Vital Signs Temp Pulse Resp BP Pulse Ox 07/09/20 05:00 99 F 07/09/20 04:20 99.9 F 83 16 95/63 95 07/09/20 01:07 88 07/09/20 00:00 98.7 F 88 18 107/60 96 07/08/20 21:00 98.6 F 73 16 100/61 97 - Problem List & Annotations (1) Appendicitis, acute SNOMED Code(s): 67942367 Code(s): K35.80 - UNSPECIFIED ACUTE APPENDICITIS Status: Acute Current Visit: Yes Qualifiers: Acute appendicitis type: with localized peritonitis Appendicitis gangrene presence: without gangrene Appendicitis perforation presence: without perforation Appendicitis abscess presence: without abscess Qualified Code(s): K35.30 - Acute appendicitis with localized peritonitis, without perforation or gangrene - Problem List Review Problem List Initiated/Reviewed/Updated: Yes - My Orders Last 24 Hours: Active Orders 24 hr Category Date Time Status Patient Status [ADT] Routine ADT 07/08/20 14:22 Active Ambulate [RC] .TID Care 07/08/20 18:13 Active Antiembolic Devices [RC] .Routine Care 07/08/20 14:24 Active Oxygen Therapy [RC] PRN Care 07/08/20 18:13 Active Patient to Empty Bladder [RC] ASDIRECTED Care 07/08/20 14:22 Active RT Aerosol Therapy [RC] ASDIRECTED Care 07/08/20 15:12 Active RT Aerosol Therapy [RC] ASDIRECTED Care 07/09/20 01:03 Active RT Incentive Spirometry [RC] ASDIRECTED Care 07/08/20 14:22 Active RT Incentive Spirometry [RC] Q2HWA Care 07/08/20 18:13 Active Ready for Discharge [RC] PER UNIT ROUTINE Care 07/09/20 08:08 Ordered VTE/DVT Education [RC] Click to Edit Care 07/08/20 14:24 Active Verify Patient Consent Obtain [RC] ASDIRECTED Care 07/08/20 14:23 Active Vital Signs [RC] Q4HR Care 07/08/20 18:13 Active Clear Liquid Diet [DIET] Diet 07/09/20 Breakfast Ordered Acetaminophen/HYDROcodone [[place] 325-5 MG] Med 07/08/20 18:13 Active 1 tab PO Q4H PRN Albuterol/Ipratropium [DuoNeb 3.0-0.5 MG/3 ML] Med 07/09/20 01:02 Active 3 ml NEB Q4H PRN Lactated Ringers [Ringers, Lactated] 1,000 ml Med 07/08/20 14:30 Active IV ASDIRECTED Morphine Med 07/08/20 18:13 Active 2 mg IVPUSH Q1H PRN Nicotine [Habitrol] Med 07/09/20 20:00 Active 21 mg TRDERM DAILY@2000 Sodium Chloride 0.9% [Saline Flush] Med 07/08/20 14:22 Active 10 ml FLUSH ASDIRECTED PRN DVT/VTE Prophylaxis Reflex [OM.PC] Routine Oth 07/08/20 14:22 Ordered Peripheral IV Insertion Adult [OM.PC] Routine Oth 07/08/20 14:22 Ordered Sequential Compression Device [OM.PC] Routine Oth 07/08/20 14:22 Ordered Resuscitation Status Routine Resus Stat 07/08/20 14:22 Ordered Medication Orders Hydrocodone Bitart/Acetaminophen (Acetaminophen/Hydrocodone 325-5 Mg Tab) 1 tab PO Q4H PRN PRN Reason: Pain (mild 1-3) Last Admin: 07/09/20 04:24 Dose: 1 tab Documented by: Admin: 07/08/20 21:39 Dose: 1 tab Documented by: GRACIE Albuterol/Ipratropium (Albuterol/Ipratropium 3.0-0.5 Mg/3 Ml Neb Soln) 3 ml NEB Q4H PRN PRN Reason: Wheezing Last Admin: 07/09/20 01:07 Dose: 3 ml Documented by: GRACIE Lactated Ringer's (Ringers, Lactated) 1,000 mls @ 125 mls/hr IV ASDIRECTED BARBARA Last Admin: 07/09/20 00:45 Dose: 125 mls/hr Documented by: GRACIE Morphine Sulfate (Morphine 2 Mg/Ml Syringe) 2 mg IVPUSH Q1H PRN PRN Reason: Pain (severe 7-10) Last Admin: 07/09/20 00:45 Dose: 2 mg Documented by: GRACIE Nicotine (Nicotine 21 Mg/24 Hr Patch) 21 mg TRDERM DAILY@2000 BARBARA Sodium Chloride (Sodium Chloride 0.9% 10 Ml Syringe) 10 ml FLUSH ASDIRECTED PRN PRN Reason: Keep Vein Open Last Admin: 07/09/20 00:45 Dose: 10 ml Documented by: GRACIE - Assessment Assessment (Free Text/Narrative):: unremarkable post op exam. slight elevation in wbc given degree of inflammation of appendix I do not believe he needs antibiotics. - Plan Plan (Free Text/Narrative):: see discharge plan
[2020-07-09] MEDS ORDERED: Nicotine 21 MG/24 Hr Patch TRDERM SCH (20:00)
== END 2020-07-09 09:04 | disposition home or self-care (01) ==
LOC: FB.SDS 14:01 → FB.MS 14:07 → FB.SDS 07-09 09:04
PROVIDERS: ATTEND Surgery
DX: K35.30 Acute appendicitis with localized peritonitis, without perforation or gangrene (principal); F17.200 Nicotine dependence, unspecified, uncomplicated; Z01.812 Encounter for preprocedural laboratory examination; Z20.822 Contact with and (suspected) exposure to COVID-19; Z79.899 Other long term (current) drug therapy; Z88.5 Allergy status to narcotic agent; Z98.890 Other specified postprocedural states
CPT/HCPCS: 00840; 36415; 44970; 85025; 87635; 88304; 94640; A9270; J0330; J0694; J1885; J2250; J2270; J2405; J2704; J2710; J3010; J3490; J7120; J7620-GY; U0002

== ENCOUNTER 2021-06-03 06:27 | Day surgery (SDC) | payer BC ==
[~2021-06-03 06:27] MED LIST: Lactated Ringers 1,000 ML IV SCH; Sodium Chloride 0.9% 10 ML Syringe FLUSH PRN
[2021-06-03] MEDS ORDERED: Propofol 200 MG/20 ML SDV IV ONE (06:28)
[2021-06-03] MEDS ORDERED: Midazolam 1 MG/ML 2 ML SDV IV ONE (06:28)
[2021-06-03] MEDS ORDERED: Lidocaine 2% 5 ML SDV INJECT ONE (06:28)
[2021-06-03] MEDS ORDERED: Succinylcholine 200 MG/10 ML MDV IV ONE (06:28)
[2021-06-03] MEDS ORDERED: Neostigmine Methylsulfate 10 MG/10 ML MDV IVPUSH ONE (06:28)
[2021-06-03] MEDS ORDERED: Dexmedetomidine 200 MCG/2 ML SDV IV ONE (06:28)
[2021-06-03] MEDS ORDERED: Glycopyrrolate 0.2 MG/ML 5 ML MDV IV ONE (06:28)
[2021-06-03] MEDS ORDERED: Rocuronium 100 MG/10 ML MDV IV ONE (06:28)
[2021-06-03] MEDS ORDERED: fentaNYL 100 MCG/2 ML SDV IV ONE (06:28)
[2021-06-03] MEDS ORDERED: Ketorolac 30 MG/ML SDV IVPUSH ONE (06:28)
[2021-06-03] MEDS ORDERED: Albuterol/Ipratropium 3.0-0.5 MG/3 ML Neb Soln NEB ONE (06:30)
[2021-06-03] MEDS ORDERED: Acetaminophen 500 MG Tab PO ONE (06:30)
[2021-06-03] MEDS ORDERED: ceFAZolin 1 GM Vial IVPUSH ONE ×2 (07:30→07:56)
[2021-06-03] MEDS ORDERED: ceFAZolin 1 GM in Sodium Chloride 0.9% 50 ML IV ONE (07:30)
== END 2021-06-03 10:21 | disposition home or self-care (01) ==
LOC: FB.SDS 06:27
PROVIDERS: ATTEND Surgery
DX: K43.2 Incisional hernia without obstruction or gangrene (principal); I10 Essential (primary) hypertension; M06.9 Rheumatoid arthritis, unspecified; J45.909 Unspecified asthma, uncomplicated; F17.210 Nicotine dependence, cigarettes, uncomplicated; Z79.899 Other long term (current) drug therapy; Z88.5 Allergy status to narcotic agent; Z98.890 Other specified postprocedural states
CPT/HCPCS: 00530-QZ; 00830-QZ; 88302; 94150; 94640; A9270-GY; J0330; J0690; J1885; J2250; J2704; J2710; J3010; J3490; J7120; J7620

== ENCOUNTER 2021-09-08 12:50 | Emergency (ER) | payer BC ==
[2021-09-08] MEDS ORDERED: Sodium Chloride 0.9% 10 ML Syringe FLUSH PRN (13:33)
[2021-09-08] MEDS ORDERED: Sodium Chloride 0.9% 1,000 ML IV ONE (13:33)
[2021-09-08 13:44] LABS: ESTIMATED GFR 108 mL/min (>60)
[2021-09-08] MEDS ORDERED: Ketorolac 30 MG/ML SDV IVPUSH ONE (15:21)
== END 2021-09-08 16:10 | disposition home or self-care (01) ==
LOC: FB.ED 12:50
DX: T67.5XXA Heat exhaustion, unspecified, initial encounter (principal); R55 Syncope and collapse; E86.0 Dehydration; M25.512 Pain in left shoulder; J45.909 Unspecified asthma, uncomplicated; I10 Essential (primary) hypertension; E66.9 Obesity, unspecified; Z68.32 Body mass index [BMI] 32.0-32.9, adult; Z90.49 Acquired absence of other specified parts of digestive tract; Z72.0 Tobacco use; Z88.5 Allergy status to narcotic agent; Z91.048 Other nonmedicinal substance allergy status; Z79.899 Other long term (current) drug therapy
CPT/HCPCS: 36415; 71045; 80053; 81001; 83735; 84484; 85025; 86140; 93005; 96361; 96374; 99284; J1885; J3490; J7030; 93010; 99282

== ENCOUNTER 2022-04-05 02:27 | Emergency (ER) | payer BC ==
[2022-04-05] MEDS ORDERED: Gabapentin 600 MG Tab PO STA (02:56)
[2022-04-05 03:02] LABS: ESTIMATED GFR 108 mL/min (>60)
== END 2022-04-05 03:55 | disposition home or self-care (01) ==
LOC: FB.ED 02:27
DX: M54.12 Radiculopathy, cervical region (principal); J45.909 Unspecified asthma, uncomplicated; I10 Essential (primary) hypertension; E66.9 Obesity, unspecified; Z68.31 Body mass index [BMI] 31.0-31.9, adult; Z88.5 Allergy status to narcotic agent; Z91.048 Other nonmedicinal substance allergy status; Z79.899 Other long term (current) drug therapy; Z90.49 Acquired absence of other specified parts of digestive tract
CPT/HCPCS: 36415; 80053; 84484; 85025; 93005; 99284; A9270-GY